=== PATIENT | male | born 1970 | race Caucasian/White ===

== ENCOUNTER 2021-04-08 12:40 | Emergency (ER) | payer OTHER ==
[~2021-04-08] VITALS: Ht 177.8 cm; Wt 122.5 kg
[2021-04-08 12:47] VITALS: BP 134/76
--- NOTE | 2021-04-08 12:58 | NUR ---
COVID PCR TEST SENT TO LAB
--- NOTE | 2021-04-08 12:58 | NUR ---
PATIENT PRESENTS TO ED WITH BACK PAIN 06/04 AND HEADACHE 06/04 WITH NAUSEA AND VOMITTING YESTERDAY. PT STATED BACK PAIN STARTED 2 DAYS AGO AND NAUSEA VOMITTING WITH HEADACHE STARTED 3 DAYS AGO, PT STATED TAKEN TYLENOL FOR PAIN AND NO OTHER MEDICATIONS. SKIN IS PINK/WARM/DRY; AAOX4 WITH EVEN AND STEADY GAIT; LUNGS CLEAR BL; HR EVEN AND REGULAR; PT DENIES ANY FEVER, CP, SOB, OR COUGH AT THIS TIME; PATIENT POSITIONED FOR COMFORT; HOB ELEVATED; BEDRAILS UP X2; BED DOWN. ER MD MADE AWARE OF PT STATUS.
[2021-04-08] MEDS ORDERED: ONDA4TAB PO (13:30)
[2021-04-08] MEDS ORDERED: ONDANSETRON 4 MG ODT PO ONE (13:30)
[2021-04-08 13:57] VITALS: BP 136/76
== END 2021-04-08 12:58 | disposition home or self-care (01) ==
LOC: MED 12:40
DX: R11.2 Nausea with vomiting, unspecified (principal); R50.9 Fever, unspecified; M79.10 Myalgia, unspecified site; Z20.822 Contact with and (suspected) exposure to COVID-19
CPT/HCPCS: 99283; Q0162; U0003